=== PATIENT | male | born 1970 | race Caucasian/White ===

== ENCOUNTER → 2022-05-15 15:53 | Outpatient (CLI) | payer OTHER, SELFPAY ==
--- NOTE | 2022-05-15 15:55 | DI.US.S_ITS ---
PROCEDURE: US ABDOMEN LIMITED INDICATIONS: GALLSTONES TECHNIQUE: Real-time scanning was performed of the abdominal and retroperitoneal organs, with image documentation. COMPARISON: None. FINDINGS: Liver: Liver is normal in size and homogeneous in echotexture. Gallbladder: The gallbladder wall measures 2.6 mm in diameter. The gallbladder is contracted and filled with multiple stones. The largest measures 1.2 cm in diameter. No pericholecystic fluid or sonographic Ochoa sign. Biliary ducts: Intrahepatic bile ducts are non-dilated. Extrahepatic bile duct caliber measures 4.7 mm. Normal is 6-7 mm or less in diameter, or 10 mm or less post-cholecystectomy. Pancreas: Visualized portions of the pancreas are sonographically normal. IMPRESSION: Cholelithiasis. No findings to suggest choledocholithiasis or acute cholecystitis. Dictated by: Wendi Garvey M.D. on 05/16/2022 at 8:24 Approved by: Wendi Garvey M.D. on 05/16/2022 at 8:25
== END ==
PROVIDERS: PCP Internal Medicine; Referring Provider Surgery; Visit Provider Surgery
DX: K80.20 Calculus of gallbladder without cholecystitis without obstruction
CPT/HCPCS: 76705

== ENCOUNTER → 2022-06-18 15:42 | Outpatient (CLI) | payer OTHER, SELFPAY ==
[2022-06-18 17:56] LABS: COVID19 -Nasal RAPID Negative (Negative)
== END ==
PROVIDERS: PCP Internal Medicine; Visit Provider Surgery
DX: Z20.822 Contact with and (suspected) exposure to COVID-19 (principal); Z01.812 Encounter for preprocedural laboratory examination
CPT/HCPCS: 87635; C9803

== ENCOUNTER 2022-06-19 06:19 | Day surgery (SDC) | payer OTHER, SELFPAY ==
[2022-06-18 08:08] VITALS: BMI 31.9
[2022-06-19] VITALS (9 sets, daily range): BP systolic 142–179; BP diastolic 86–103; PULSE 65–90; RESP 12–20; TEMP 36.3–36.8; O2SAT 92–99; BMI 31.9
--- NOTE | 2022-06-19 | PATH_ITS ---
[facility] Accession Number: [id number] . 01 Material submitted: . gallbladder - GALLBLADDER . 01 Diagnosis: Gallbladder, Cholecystectomy: Cholelithiasis with cholesterolosis. No evidence of neoplasm. [facility] 06/21/2022 1425 Local . 01 Electronically signed: . Sam Tyler MD, PhD, Pathologist NPI- [id number] . 01 Gross description: . Received in formalin, labeled with the patient's name and gallbladder, and consists of a 6.3 x 2.5 x 1.8 cm gallbladder with a full-thickness defect on hepatic surface measuring 0.5 cm in greatest dimension. The serosa is zamora, congested, and smooth. The cystic duct is received closed with a clamp, is inked blue, and no pericystic lymph node is identified. Opening the specimen reveals a small amount of green viscous bile and multiple black, rough, irregular calculi measuring up to 1.0 cm in greatest dimension, obstructing the cystic duct. The mucosa is green and velvety with numerous pinpoint yellow discolorations consistent with cholesterol deposits. No polyps or lesions are identified. The lemus average 0.4 cm thick. [employer] Technician sections to include the cystic duct margin and full-thickness sections are submitted in cassette A1. ([id number]) /FRR 06/20/2022 1738 Local . 01 Pathologist provided ICD-10: K80.50 . 01 CPT . 302894 Specimen Comment: A courtesy copy of this report has been sent to [phone] Performed at: 01 [facility] [address] [place] [address] [address] [facility], [place], [place] [id number] MD Ken Bailey MD Phone: [phone]
[2022-06-19] MEDS: LACTATED RINGERS 1,000 ML 100 ML IV (07:12)
--- NOTE | 2022-06-19 07:39 | PM.HP.1 ---
History of Present Illness History of Present Illness Date Patient Seen: 06/19/22 Time Patient Seen: 07:39 Chief complaint: SDC Narrative: 51-year-old man with symptomatic biliary colic here for elective cholecystectomy. No interval changes in health. He did receive a formal abdominal ultrasound in the interim which demonstrates gallstones. Patient History Medical History Eczema GERD (gastroesophageal reflux disease) Headache, migraine Hyperlipemia Hypertension RADHA on CPAP Pneumonia Pre-diabetes Sinus drainage Umbilical hernia Surgical History H/O umbilical hernia repair (01/2016) Family & Social History Family History Mother Diabetes mellitus Hypertension Social History: household members spouse,family,children lives independently Yes Tobacco & Substance use: Smoking Status Never smoker alcohol intake current alcohol intake frequency other Substance Use Type does not use Meds Home Medications and Allergies Home Medications Medication Instructions Recorded Confirmed Type amlodipine 5 mg tablet 5 mg PO DAILY 05/10/22 06/19/22 History lisinopril 5 mg tablet 5 mg PO DAILY 05/10/22 06/19/22 History simvastatin 20 mg tablet 20 mg PO DAILY 05/10/22 06/19/22 History Allergies Allergy/AdvReac Type Severity Reaction Status Date / Time Penicillins Allergy Basically Verified 06/19/22 06:43 blind, feet itch, swelling of lips Exam Vital Signs (past 8 hours): - 06/19/22 06:48 Temperature 97.6 F Pulse Rate 67 Respiratory Rate 16 Blood Pressure 145/93 H Pulse Oximetry 96 Oxygen Delivery Method Room Air Oxygen Delivery Method Room Air Narrative Exam Narrative: General adult male alert oriented no acute distress Chest nonlabored respiration Abdomen soft nontender nondistended Assessment & Plan Assessment and plan (1) Biliary colic: Status: Acute Assessment & Plan narrative: 51-year-old male with symptoms and radiographic findings consistent with biliary colic. Will proceed with laparoscopic cholecystectomy. Operative risks including bleeding, infection, damage to surrounding structures, bile duct injury were discussed. His questions have been answered and he is in agreement with this plan. Time Spent With Patient Critical Care time: I spent a total of [] minutes of critical care time on this patient's care today; this time is exclusive of procedural time.
[2022-06-19] MEDS: CLINDAMYCIN 900 MG/50 ML PIGGYBACK 50 MG IV (07:57)
[2022-06-19] MEDS: BUPIVACAINE 0.25% (PF) VIAL 30 ML INJ (08:10)
--- NOTE | 2022-06-19 08:12 | SUR.OPER ---
Supine on padded OR bed, head on pillow, safety belt at thigh, left arm padded and tucked at side. Right arm secured on padded arm board <90 degrees abduction. Legs uncrossed. Padded footboard in place. Tape over blanket to secure lower legs. Gel pad under bilateral heels.
--- NOTE | 2022-06-19 08:54 | PM.OP.1 ---
Operative Date/Time/Diagnoses Date of procedure: 06/19/22 Time of procedure: 08:54 Pre-op diagnosis: Biliary colic Post-op diagnosis: same Procedure & Clinicians Procedure: Laparoscopic cholecystectomy Same procedure as scheduled: Yes Indications: Symptoms and radiographic findings consistent with biliary colic Surgeon: Yao Saldana Click Yes if Unassisted: Yes Anesthesia Type: General Operative Notes Findings: Critical view of safety established. Gallstones no evidence of acute cholecystitis. Specimen(s): other (Gallbladder) Estimated Blood Loss (mL): 20 Procedure in detail: The patient was placed supine on the table and bilateral lower extremity compression devices were applied. Anesthesia was induced they were intubated with an endotracheal tube and received clindamycin. A time-out was performed. They were prepped and draped in sterile fashion. An supraumbilical incision was made the fascia was sharply incised entering the abdomen atraumatically. A blunt tip 12mm balloon trocar was then inserted, pneumoperitoneum was established and inspection of the abdomen demonstrated no evidence of injury. They were placed head up and right side up and then a 11 mm port was placed high in the epigastrium and two 5mm in the right upper quadrant. The gallbladder was grasped by the fundus and retracted over the liver and retracted laterally by the infundibulum. Using electrocautery the lateral plane between the gallbladder and the liver was opened towards the fundus. The gallbladder was then retracted laterally and the medial plane was developed in the same manner. With the gallbladder mobilized the bottom of the cystic plate was visualized. The hepatocystic triangle was meticulosly skeletonized using hook electrocautery of all fat and fibrous tissue from both the front and the back. Only two structures were then clearly seen entering the gallbladder the cystic duct and the cystic artery. With the critical view of safety fully established the cystic duct was clipped twice proximally and once distally using the 10 mm Weck hemo clip applied under direct visualization and then sharply divided. The cystic artery was divided in the same fashion. The gallbladder was removed from the liver bed using electro cautery. The liver bed was then inspected for hemostasis and this was achieved. The abdomen was irrigated with sterile saline and inspection was made that showed the clips in good position. The specimen was removed using Endo-Catch. The abdomen was desufflated. The umbilical fascia was closed with 0 Vicryl in a [id number] fashion under direct visualization. Skin incisions were irrigated and closed with 4-0 Monocryl. 30 ml of 0.25% bupivacaine was infiltrated into the subcutaneous tissue of the incisions. The wounds were sealed with Dermabond. Patient emerged from anesthesia was extubated and transferred to recovery in stable condition. The sponge and instrument count at the end of the operation was correct. Complications: none Post-operative Condition: stable Disposition: same day surgery
[2022-06-19] MEDS: HYDROMORPHONE 2 MG INJ IV (09:00)
[2022-06-19] MEDS: ACETAMINOPHEN 325 MG TABLET 975 MG PO (09:20)
[2022-06-19] MEDS: OXYCODONE IR 5 MG TABLET PO (09:20)
[2022-06-19] MEDS: ONDANSETRON 4 MG/2 ML INJ IV (09:46)
== END 2022-06-19 10:10 | disposition home or self-care (01) ==
PROVIDERS: PCP Internal Medicine; Referring Provider Surgery; Visit Provider Surgery
PROC: 0FT44ZZ Resection of Gallbladder, Percutaneous Endoscopic Approach (ICD-10-PCS; CPT 47562; principal; 2022-06-19 07:45)
DX: K80.20 Calculus of gallbladder without cholecystitis without obstruction (principal); G47.33 Obstructive sleep apnea (adult) (pediatric); I10 Essential (primary) hypertension; R73.03 Prediabetes
CPT/HCPCS: 47562; 82962; J1100; J1170; J1885; J2250; J2405; J2704; J3010

== ENCOUNTER → 2024-03-22 15:16 | Outpatient (CLI) | payer OTHER, SELFPAY ==
--- NOTE | 2024-03-22 15:17 | DI.NM.S_ITS ---
PROCEDURE: NM EXERCISE TREADMILL NON NUC COMPARISON: None INDICATIONS: Cardiac arrhythmia, unspecified FINDINGS: Rest ECG sinus rhythm. Vadim protocol 10:50, maximum heart rate 171 bpm (102% peak predicted), maximum blood pressure 212/110, 12.8 METS, ELIJAH -8%. Exercise ECG sinus tachycardia, no ST segment or arrhythmia. The patient did not complain of exercise-induced chest discomfort. IMPRESSION: Low risk study. No evidence of exercise-induced ischemia or arrhythmia. Normal heart rate response however hypertensive response to exercise. Good exercise capacity. Dictated by: Becca Mccormick D.O. on 03/22/2024 at 17:18 Approved by: Becca Mccormick D.O. on 03/22/2024 at 17:22
== END ==
LOC: RAD 15:16
PROVIDERS: PCP Internal Medicine; Referring Provider Internal Medicine Cardiovascular Disease; Visit Provider Internal Medicine Cardiovascular Disease
DX: I49.9 Cardiac arrhythmia, unspecified (principal); R00.1 Bradycardia, unspecified; I10 Essential (primary) hypertension
CPT/HCPCS: 93017